=== PATIENT | male | born 1950 | race African-American/Black ===

== ENCOUNTER 2017-01-11 20:00 | Inpatient (IN) | payer OTHER ==
[~2017-01-11] VITALS: Ht 180.3 cm; Wt 111.1 kg
[2017-01-11 20:02] VITALS: BP_SYST 106
[2017-01-11] MEDS ORDERED: NITROGLYCERIN LINGUAL 400 mCg/SPRAY SL ONE (20:30)
[2017-01-11] MEDS ORDERED: ASPIRIN 81 MG TAB.CHEW PO ONE (20:30)
[2017-01-11 20:51] LABS: BASOPHILS % (AUTO) 0.7 % (0.0-2.0); EOSINOPHILS # (AUTO) 0.2 K/uL (0.0-0.4); EOSINOPHILS % (AUTO) 2.5 % (0.0-4.0); HEMATOCRIT 40.2 % (36-54); HEMOGLOBIN 12.8 g/dL (14.0-18.0); LYMPHOCYTES # (AUTO) 0.9 K/uL (1.0-5.5); LYMPHOCYTES % (AUTO) 13.2 % (20.5-51.5); MEAN CORPUSCULAR HEMOGLOBIN 28 pg (27-31); MEAN CORPUSCULAR HGB CONC 32 % (32-36); MEAN CORPUSCULAR VOLUME 89 fL (79.0-98.0); MONOCYTES # (AUTO) 0.6 K/uL (0.0-1.0); MONOCYTES % (AUTO) 8.8 % (1.7-9.3); NEUTROPHILS # (AUTO) 4.8 K/uL (1.8-7.7); NEUTROPHILS % (AUTO) 74.8 % (40.0-70.0); PLATELET COUNT (AUTO) 113 K/uL (130-430); RED BLOOD CELL COUNT(AUTO) 4.51 MIL/uL (4.2-6.2); RED CELL DISTRIBUTION WIDTH 16.7 % (9.0-15.0); WHITE BLOOD COUNT (AUTO) 6.5 K/uL (4.8-10.8)
[2017-01-11 21:04] LABS: CALCIUM 9.1 mg/dL (8.4-11.0); CREATININE 1.47 mg/dL (0.55-1.30); POTASSIUM 4.1 mmol/L (3.5-5.1)
[2017-01-11 21:08] LABS: ALBUMIN 3.7 g/dL (3.4-4.8); INR 1.1 (0.80-1.20); TOTAL BILIRUBIN 0.3 mg/dL (0.0-1.0)
[2017-01-11] MEDS ORDERED: DIPHENHYDRAMINE INJ 50 MG/ML VIAL IVP ONE (21:45)
[2017-01-11] MEDS ORDERED: MORPHINE 2 MG/ML INJ. SYRINGE IVP ONE (21:45)
[2017-01-11] MEDS ORDERED: CLOP75TA2 PO (22:00)
[2017-01-11] MEDS ORDERED: ESOM20CA PO (22:00)
[2017-01-11] MEDS ORDERED: ROSU20TA PO (22:00)
[2017-01-11] MEDS ORDERED: ASPI81TA2 PO (22:00)
[2017-01-11] MEDS ORDERED: METO25TA6 PO (22:00)
[2017-01-11] MEDS ORDERED: ALLO300T47 PO (22:00)
[2017-01-11] MEDS ORDERED: VALS320T10 PO (22:00)
[2017-01-11 22:16] LABS: BILIRUBIN,URINE NEGATIVE (NEGATIVE); BLOOD, URINE NEGATIVE (NEGATIVE); CLARITY/URINE CLEAR (CLEAR); COLOR,URINE YELLOW (YELLOW); GLUCOSE,URINE NEGATIVE (NEGATIVE); KETONES,URINE NEGATIVE (NEGATIVE); LEUKOCYTE ESTERASE ,URINE NEGATIVE (NEGATIVE); NITRITE, URINE NEGATIVE (NEGATIVE); PH,URINE 5.5 (5.0-8.0); PROTEIN URINE 2+ (NEGATIVE); UROBILINOGEN,URINE 0.2 (0.2-1.0)
[2017-01-11 23:24] VITALS: BP_SYST 109
[2017-01-11 23:32] LABS: BACTERIA,URINE FEW /HPF (None Seen); FINE GRANULAR CASTS,URINE 0-10 /LPF (None Seen); MUCUS,URINE 1+ /LPF (None Seen); RBC,URINE 0-3 /HPF (0-3); WBC,URINE 0-3 /HPF (0-3)
[2017-01-11 23:50] VITALS: BP_SYST 109
[2017-01-12] MEDS ORDERED: ENOXAPARIN SODIUM 40 MG/0.4 ML SYRINGE SUBCUT ONE
[2017-01-12] MEDS ORDERED: ACETAMINOPHEN 325 MG TABLET PO PRN
[2017-01-12] MEDS ORDERED: TEMAZEPAM 15 MG CAPSULE PO PRN
[2017-01-12] MEDS ORDERED: NITROGLYCERIN 0.4 MG TAB.SUBL SL PRN
[2017-01-12 04:00] VITALS: BP_SYST 106
[2017-01-12 04:54] LABS: BASOPHILS # (AUTO) 0.1 K/uL (0.0-0.2); BASOPHILS % (AUTO) 1.8 % (0.0-2.0); EOSINOPHILS # (AUTO) 0.2 K/uL (0.0-0.4); EOSINOPHILS % (AUTO) 2.6 % (0.0-4.0); HEMATOCRIT 38.5 % (36-54); HEMOGLOBIN 12.3 g/dL (14.0-18.0); LYMPHOCYTES # (AUTO) 0.8 K/uL (1.0-5.5); LYMPHOCYTES % (AUTO) 13.3 % (20.5-51.5); MEAN CORPUSCULAR HEMOGLOBIN 28 pg (27-31); MEAN CORPUSCULAR HGB CONC 32 % (32-36); MEAN CORPUSCULAR VOLUME 89 fL (79.0-98.0); MONOCYTES # (AUTO) 0.9 K/uL (0.0-1.0); MONOCYTES % (AUTO) 15.4 % (1.7-9.3); NEUTROPHILS # (AUTO) 4.2 K/uL (1.8-7.7); NEUTROPHILS % (AUTO) 66.9 % (40.0-70.0); RED BLOOD CELL COUNT(AUTO) 4.34 MIL/uL (4.2-6.2); RED CELL DISTRIBUTION WIDTH 17.2 % (9.0-15.0); WHITE BLOOD COUNT (AUTO) 6.2 K/uL (4.8-10.8)
[2017-01-12 05:18] LABS: ALANINE AMINOTRANSFERASE 20 U/L (12-78); ANION GAP 6 (5-15); ASPARTATE AMINOTRANSFERASE 15 U/L (10-37); CALCIUM 8.8 mg/dL (8.4-11.0); CHLORIDE 109 mmol/L (98-107); CREATININE 1.44 mg/dL (0.55-1.30); GFR AFRICAN AMERICAN 63 mL/min (>90); GLUCOSE 136 mg/dL (70-99); SODIUM SERUM 138 mmol/L (136-145); TOTAL BILIRUBIN 0.3 mg/dL (0.0-1.0); UREA NITROGEN, BLOOD 29 mg/dL (8-21)
[2017-01-12 05:19] LABS: ALBUMIN 3.3 g/dL (3.4-4.8); CHOLESTEROL < 50 mg/dL (<200); FREE T4 (FREE THYROXINE) 0.6 ng/dL (0.6-1.6); HDL CHOLESTEROL 13 mg/dL (>45); LDL CHOLESTEROL 33 mg/dL (<100); THYROID STIMULATING HORMONE 0.86 uIu/mL (0.34-4.82); TRIGLYCERIDES < 15 mg/dL (30-150)
[2017-01-12 05:24] LABS: PLATELET COUNT (AUTO) 94 K/uL (130-430)
[2017-01-12 08:06] VITALS: BP_SYST 126
[2017-01-12] MEDS: ALLOPURINOL 300 MG TABLET (ZYLOPRIM) PO SCH (08:47)
[2017-01-12] MEDS: VALSARTAN 160 MG TABLET (DIOVAN) PO SCH (08:49)
[2017-01-12] MEDS: ATORVASTATIN 20 MG TABLET PO SCH (08:50)
[2017-01-12] MEDS: PANTOPRAZOLE SODIUM 40 MG TAB PO SCH (08:50)
[2017-01-12] MEDS: ASPIRIN 81 MG TAB.CHEW PO SCH (08:51)
[2017-01-12] MEDS: METOPROLOL TARTRATE 25 MG TABLET PO SCH (08:51)
[2017-01-12] MEDS: CLOPIDOGREL BISULFATE 75 MG TABLET PO SCH (08:51)
[2017-01-12 08:52] VITALS: BP_SYST 109
[2017-01-12] MEDS ORDERED: COLCHICINE 0.6 MG TABLET PO ONE (10:00)
[2017-01-12 12:20] VITALS: BP_SYST 106
[2017-01-12] MEDS: MORPHINE 2 MG/ML INJ. SYRINGE IVP PRN ×2 (16:07→21:03)
[2017-01-12 16:32] VITALS: BP_SYST 120
[2017-01-12 20:00] VITALS: BP_SYST 120
[2017-01-12] MEDS ORDERED: ENOXAPARIN SODIUM 40 MG/0.4 ML SYRINGE SUBCUT SCH (21:00)
[2017-01-12] MEDS: COLCHICINE 0.6 MG TABLET PO SCH (21:02)
[2017-01-13 00:25] VITALS: BP_SYST 131
[2017-01-13] MEDS: MORPHINE 2 MG/ML INJ. SYRINGE IVP PRN (01:39)
[2017-01-13 04:19] VITALS: BP_SYST 109
[2017-01-13 06:50] LABS: BASOPHILS % (AUTO) 0.3 % (0.0-2.0); EOSINOPHILS # (AUTO) 0.2 K/uL (0.0-0.4); HEMATOCRIT 42.5 % (36-54); HEMOGLOBIN 13.3 g/dL (14.0-18.0); LYMPHOCYTES # (AUTO) 1.3 K/uL (1.0-5.5); LYMPHOCYTES % (AUTO) 18.9 % (20.5-51.5); MEAN CORPUSCULAR HEMOGLOBIN 28 pg (27-31); MEAN CORPUSCULAR HGB CONC 31 % (32-36); MEAN CORPUSCULAR VOLUME 89 fL (79.0-98.0); MONOCYTES # (AUTO) 1.2 K/uL (0.0-1.0); MONOCYTES % (AUTO) 16.8 % (1.7-9.3); NEUTROPHILS # (AUTO) 4.3 K/uL (1.8-7.7); PLATELET COUNT (AUTO) 111 K/uL (130-430); RED BLOOD CELL COUNT(AUTO) 4.79 MIL/uL (4.2-6.2); RED CELL DISTRIBUTION WIDTH 16.5 % (9.0-15.0)
[2017-01-13 07:07] LABS: CALCIUM 9.1 mg/dL (8.4-11.0); CREATININE 1.3 mg/dL (0.55-1.30); POTASSIUM 4.7 mmol/L (3.5-5.1)
[2017-01-13 07:55] VITALS: BP_SYST 113
[2017-01-13] MEDS: VALSARTAN 160 MG TABLET (DIOVAN) PO SCH (08:19)
[2017-01-13] MEDS: ATORVASTATIN 20 MG TABLET PO SCH (08:20)
[2017-01-13] MEDS: COLCHICINE 0.6 MG TABLET PO SCH (08:20)
[2017-01-13] MEDS: ALLOPURINOL 300 MG TABLET (ZYLOPRIM) PO SCH (08:20)
[2017-01-13] MEDS: ASPIRIN 81 MG TAB.CHEW PO SCH (08:20)
[2017-01-13] MEDS: CLOPIDOGREL BISULFATE 75 MG TABLET PO SCH (08:20)
[2017-01-13] MEDS: PANTOPRAZOLE SODIUM 40 MG TAB PO SCH (08:21)
[2017-01-13] MEDS: METOPROLOL TARTRATE 25 MG TABLET PO SCH (08:21)
[2017-01-13 09:47] LABS: ERYTHROCYTE SEDIMENTATION RATE 40 MM/HR (0-15)
[2017-01-13 12:01] VITALS: BP_SYST 110
[2017-01-13] MEDS ORDERED: COLC0.6T67 PO (14:07)
[2017-01-13 15:15] VITALS: BP_SYST 112
[2017-01-13 16:00] VITALS: BP_SYST 115
== END 2017-01-13 16:50 | disposition home or self-care (01) | DRG 315 ==
LOC: SED 20:00 → STU 22:54
PROVIDERS: ADMIT Internal Medicine; ATTEND Internal Medicine
DX: I30.9 Acute pericarditis, unspecified (principal); E44.1 Mild protein-calorie malnutrition; D69.6 Thrombocytopenia, unspecified; J44.9 Chronic obstructive pulmonary disease, unspecified; N18.3 Chronic kidney disease, stage 3 (moderate); E66.9 Obesity, unspecified; D64.9 Anemia, unspecified; E78.5 Hyperlipidemia, unspecified; I12.9 Hypertensive chronic kidney disease with stage 1 through stage 4 chronic kidney disease, or unspecified chronic kidney disease; I25.119 Atherosclerotic heart disease of native coronary artery with unspecified angina pectoris; Z82.49 Family history of ischemic heart disease and other diseases of the circulatory system; Z87.891 Personal history of nicotine dependence; Z95.1 Presence of aortocoronary bypass graft; Z68.34 Body mass index [BMI] 34.0-34.9, adult; Z95.5 Presence of coronary angioplasty implant and graft
CPT/HCPCS: 36415; 71010; 76700-TC; 80048; 80053; 80061; 81000-TC; 83735-TC; 83880; 84439; 84443-TC; 84484; 85025; 85610-TC; 85651-TC; 85730-TC; 93005; 96374; 96375; 99285; J1200; J1650; J2270

== ENCOUNTER 2023-05-08 20:38 | Emergency (ER) | payer OTHER ==
[~2023-05-08] VITALS: Ht 177.8 cm; Wt 106.6 kg
[~2023-05-08 20:38] MED LIST: ALLO-57 PO; ASPI-1155 PO; CLOP75TA2 PO; COLC0.6T67 PO; ESOM20CA PO; METO25TA6 PO; ROSU20TA2 PO; VALS320T2 PO
[2023-05-08 20:55] VITALS: BP_SYST 136; PULSE 55; RESP 18; TEMP 98.3; O2SAT 99
[2023-05-08] MEDS ORDERED: IBUP-1969 PO (22:18)
[2023-05-08] MEDS ORDERED: SOM350 PO (22:18)
[2023-05-08 22:35] VITALS: BP_SYST 136; PULSE 55; RESP 18; TEMP 98.3; O2SAT 99
== END 2023-05-08 22:35 | disposition home or self-care (01) ==
LOC: SED 20:38
DX: S16.1XXA Strain of muscle, fascia and tendon at neck level, initial encounter (principal); S39.012A Strain of muscle, fascia and tendon of lower back, initial encounter; Z88.0 Allergy status to penicillin; Z79.899 Other long term (current) drug therapy; V89.2XXA Person injured in unspecified motor-vehicle accident, traffic, initial encounter; Y93.89 Activity, other specified; Y92.89 Other specified places as the place of occurrence of the external cause; Y99.8 Other external cause status
CPT/HCPCS: 72040; 72100; 99284